=== PATIENT | male | born 1940 | race Caucasian/White ===

== ENCOUNTER 2018-05-06 08:08 | Observation (INO) | payer OTHER, MEDICARE ==
[2018-05-06] MEDS ORDERED: ASPIRIN EC 325 MG TAB PO ONE ×2 (08:13→09:15)
[2018-05-06] MEDS ORDERED: diphenhydrAMINE 25 MG CAP PO ONE ×2 (08:13→09:15)
[2018-05-06] MEDS ORDERED: FAMOTIDINE 20 MG TAB PO ONE (08:13)
[2018-05-06] MEDS ORDERED: NS 1,000 ML IV ONE (08:13)
--- NOTE | 2018-05-06 08:44 | CPEKG ---
Heart Rate: 58 RR Interval: 1034 P-R Interval: 160 QRSD Interval: 90 QT Interval: 396 QTC Interval: 389 P [place]: -32 QRS [place]: 69 T Wave [place]: 134 EKG Severity - ABNORMAL ECG - EKG Impression: SINUS RHYTHM EKG Impression: NONSPECIFIC T ABNORMALITIES, ANT-LAT LEADS Electronically Signed By: Maximo Doyle 07-May-2018 11:23:51
[2018-05-06] MEDS ORDERED: LIDOCAINE 1% 300 MG/30 ML SDV ONE (08:45)
[2018-05-06] MEDS ORDERED: fentaNYL 100 MCG/2 ML INJ ONE ×2 (08:45→10:34)
[2018-05-06] MEDS ORDERED: MIDAZOLAM 2 MG/2 ML VIAL ONE (08:45)
[2018-05-06] MEDS ORDERED: IOPAMIDOL (ISOVUE-370) 150 ML BTL IV ONE ×2 (08:46→10:31)
[2018-05-06 09:07] LABS: PLATELET COUNT 167 10^3/uL (150-400)
[2018-05-06] MEDS ORDERED: FAMOTIDINE 20 MG TAB ONE (09:15)
[2018-05-06 09:19] LABS: PROTIME(PATIENT) 13.4 SEC (12.0-15.0)
--- NOTE | 2018-05-06 09:22 | PDHPUP ---
History & Physical Update H&P update statement: This history and physical update is based on an assessment of the patient which was completed after admission or registration (within 24 hours), but prior to the surgery/procedure. H&P update: H&P reviewed & patient examined, no change in patient's condition since H&P completed
--- NOTE | 2018-05-06 09:23 | PDPROPOC ---
Sedation Plan of Care Sedation Plan of Care: vital signs stable, mental status noted, patient educated of risks, benefits, alternatives, patient can tolerate sedation ASA Classification: ASA 3 Planned drugs: fentanyl, midazolam Mallampati Score: Class 2 Mallampati Reference Image: Patient passed 3-3-2 rule?: Yes
--- NOTE | 2018-05-06 10:18 | PDDXCAT ---
Diagnostic Cath Note - . Date: 05/06/18 Advertising Account Manager: George Indication: CCC Class III and IV angina on medical treatment - Procedure Access: right groin Procedure: coronary angiography, vein graft injection, PAZ injection, other ( coronary catheterization) - Materials Left Heart Cath size: 6F Left Heart Cath materials: standard multipack (JL4, JR4, pigtail) - Findings-Left Heart Catheterization LM: The LM bifurcates into an LAD and circumflex system. LAD: The LAD is diffusely diseased. There is a 95% obstruction of the proximal [place] LAD that required stenting. LCX: The circumflex proper is 3mm in size and is 100% occluded after a small left atrial branch. The graft to the circumflex is widely patent. RCA: The [place] RCA has 50% eccentric stenois. The mid RCA is dominant with diffuse disease. There is no flow limiting obstrcution. rSVG: The rSVG to the RCA is occluded. The rSVG to the circumflex is widely patent. PAZ: The PAZ to the LAD distally is widely patent without evidence of flow limiting disease. The distal LAD is small. Complications: NONE. Estimated blood loss: <50ml Closure method: Angioseal Assessment: The patient has severe [place] vessel coronary disease with a 95% proximal LAD obstruction that required stenting. The grafts to the LAD and circ is patent and there is competitive flow in the smaller of the 2 diagonal branches. The SVG to the RCA is known to be occluded. There was disease in the retrograde portion of the diagonal branch that appeared to limit blood flow to the alpha branch of the diagonal which is larger and longer than the grafted beta branch. The patient has known anterolateral wall motion abnormality so I elected to stent the proximal LAD to improve the blood flow to the diagonal alpha branch. Plan: Dual antiplatelet therapy with Aspirin 325mg for the first month followed by Aspirin 81mg along with Plavix 75mg daily should be continued for at least 1 year following drug eluting stent implantation. No elective surgery for the first 3 months. Decisions to stop dual antiplatelet therapy before 1 year should involve our office [facility]. Intervention: A 6 [place] EBU guiding catheter was used for guide catheter support. A 0.014 Intuition Wire was advanced across the lesion in the proximal LAD under direct fluoroscopic and angiographic guidance. The lesion in the [place] proximal LAD was primarily stented with a Synergy 3.0 x 25mm drug eluting stent. There was 0 % residual stenosis post stent implantation. Patient Problems: Problems Problem Status Onset Azotemia Acute Nephrolithiasis Acute Ureterolithiasis Acute
[2018-05-06] MEDS ORDERED: BIVALIRUDIN 250 MG/5 ML VIAL IV ONE (10:23)
[2018-05-06] MEDS ORDERED: NITROGLYCERIN 1,500 MCG/15 ML VIAL MISC ONE (10:31)
[2018-05-06] MEDS ORDERED: CLOPIDOGREL BISULFATE 75 MG TAB ONE (10:45)
--- NOTE | 2018-05-06 11:19 | CPEKG ---
Heart Rate: 63 RR Interval: 952 P-R Interval: 172 QRSD Interval: 104 QT Interval: 418 QTC Interval: 428 P [place]: 55 QRS [place]: 81 T Wave [place]: 22 EKG Severity - BORDERLINE ECG - EKG Impression: SINUS RHYTHM EKG Impression: BORDERLINE RIGHT AXIS DEVIATION EKG Impression: BORDERLINE T ABNORMALITIES, ANTERIOR LEADS Electronically Signed By: Maximo Doyle 07-May-2018 11:23:47
[2018-05-06] MEDS ORDERED: OXYCODONE/APAP 5/325 TAB PO PRN (11:28)
[2018-05-06] MEDS ORDERED: ATROPINE SULFATE 1 MG/10 ML SYR IVP PRN (11:28)
[2018-05-06] MEDS ORDERED: HYDROCODONE/APAP 5/325 TAB PO PRN (11:28)
[2018-05-06] MEDS ORDERED: CLOPIDOGREL BISULFATE 75 MG TAB PO ONE (11:28)
[2018-05-06] MEDS ORDERED: ONDANSETRON 4 MG/2 ML VIAL IVP PRN (11:28)
[2018-05-06] MEDS ORDERED: NS 1,000 ML IV SCH (11:30)
[2018-05-06] MEDS ORDERED: METOCLOPRAMIDE 10 MG TAB PO PRN (11:36)
[2018-05-06] MEDS ORDERED: CARBOXYMETHYLCELLULOSE 1% 0.4 ML DROPERETTE EACHEYE PRN (11:36)
[2018-05-06] MEDS ORDERED: CHOLECALCIFEROL VIT D3 2,000 UNITS TAB/CAP PO PRN (11:36)
--- NOTE | 2018-05-06 15:04 | ASMTCMCOM ---
CM Note CM Note Notes: 05/06/2018 Case Management Note Pt admitted for CAD with stent in the proximal LAD. Pt had heart cath this morning. Reviewed chart to assess for discharge needs. Pt is and retired. There is a cardiac rehab eval ordered. Discharge needs are yet to be identified, anticipating independent discharge. Case Management d/c poc: to be determined Case Management to follow. Date Signed: 05/06/2018 03:04 PM Electronically Signed By:Pascale Wharton RN
[2018-05-06] MEDS ORDERED: ATORVASTATIN CALCIUM 20 MG TAB PO SCH (18:00)
[2018-05-06] MEDS ORDERED: METOPROLOL SUCCINATE XR 25 MG TAB PO SCH (18:00)
[2018-05-06] MEDS: GABAPENTIN 100 MG CAP PO PRN ×2 (18:30→22:26)
[2018-05-06] MEDS ORDERED: MELATONIN 3 MG TAB PO SCH (21:00)
[2018-05-06] MEDS ORDERED: FAMOTIDINE 20 MG TAB PO SCH (21:00)
[2018-05-06] MEDS: NIACIN ER 500 MG TAB.ER PO SCH (22:26)
[2018-05-06] MEDS: buPROPion SR 150 MG TAB PO SCH (22:27)
[2018-05-06] MEDS: PENTOXIFYLLINE 400 MG EXT REL TAB PO SCH (22:27)
--- NOTE | 2018-05-07 05:44 | CPEKG ---
Heart Rate: 52 RR Interval: 1154 P-R Interval: 172 QRSD Interval: 88 QT Interval: 424 QTC Interval: 395 P [place]: -29 QRS [place]: 64 T Wave [place]: 116 EKG Severity - ABNORMAL ECG - EKG Impression: SINUS RHYTHM EKG Impression: NONSPECIFIC T ABNORMALITIES, ANT-LAT LEADS Electronically Signed By: Maximo Doyle 07-May-2018 11:23:17
[2018-05-07 06:02] LABS: PLATELET COUNT 137 10^3/uL (150-400)
[2018-05-07 07:21] VITALS: BP 136/78
[2018-05-07] MEDS ORDERED: PIOGLITAZONE HCL 15 MG TAB PO SCH (09:00)
[2018-05-07] MEDS ORDERED: LEVOTHYROXINE 75 MCG TAB PO SCH (09:00)
[2018-05-07] MEDS ORDERED: ASPIRIN EC 325 MG TAB PO SCH (09:00)
[2018-05-07] MEDS ORDERED: CHLORTHALIDONE 25 MG TAB PO SCH (09:00)
[2018-05-07] MEDS ORDERED: CLOPIDOGREL BISULFATE 75 MG TAB PO SCH (09:00)
[2018-05-07] MEDS ORDERED: MEMANTINE HCL 5 MG TAB PO SCH (09:00)
[2018-05-07] MEDS ORDERED: OMEGA-3 FATTY ACIDS 1,000 MG CAP PO SCH (09:00)
--- NOTE | 2018-05-07 09:50 | PDIAF ---
- Diagnosis Diagnosis: CAD Code Status: Full Code - Medication Management Discharge Medications: Medications to Continue on Transfer Aspirin EC [Aspirin EC 325 mg (*)] 325 mg PO DAILY #0 tab 08/27/16 [Last Taken Unknown] Atorvastatin Calcium [Lipitor 20 mg (*)] 20 mg PO DAILY18 #0 tab 08/27/16 [Last Taken Unknown] Cholecalciferol Vit D3 [Vitamin D3 2000 units tab (OTC)] 2,000 units PO DAILY PRN #0 each 08/27/16 [Last Taken Unknown] Herbals/Supplements -Info Only 1 each PO DAILY18 #0 ea 08/27/16 [Last Taken Unknown] Levothyroxine [Synthroid 75 mcg (*)] 75 mcg PO DAILY #0 tab 08/27/16 [Last Taken Unknown] Melatonin [Melatonin 3 MG (*)] 6 mg PO HS #0 tab 08/27/16 [Last Taken Unknown] Metoprolol Succinate Xr [Toprol Xl 25 mg (*)] 25 mg PO DAILY18 #0 tab 08/27/16 [ Last Taken Unknown] Niacin ER [Niaspan 500 mg (*)] 1,000 mg PO BID #0 tab 08/27/16 [Last Taken Unknown] Pentoxifylline [TRENTAL 400mg (*)] 400 mg PO BID #0 tab 08/27/16 [Last Taken Unknown] buPROPion SR [Wellbutrin 150mg SR (*)] 150 mg PO BID #0 tab 08/27/16 [Last Taken Unknown] celeCOXIB [Celebrex (*)] 200 mg PO BID #0 cap 08/27/16 [Last Taken Unknown] traZODone [traZODone 150MG (*)] 150 mg PO HS #0 tab 08/27/16 [Last Taken Unknown ] Carboxymethylcellulose 1% [Refresh Celluvisc (*)] 1 drop EACHEYE Q2HRS PRN 05/05 [Last Taken Unknown] Chlorthalidone [Chlorthalidone 25 mg (*)] 25 mg PO DAILY 05/05/18 [Last Taken Unknown] Gabapentin [Neurontin 100 MG (*)] 100 mg PO QID PRN 05/05/18 [Last Taken Unknown ] Memantine HCl [Namenda 5 mg (*)] 10 mg PO DAILY 05/05/18 [Last Taken Unknown] Metoclopramide [Reglan 10 mg tab (*)] 10 mg PO BID PRN 05/05/18 [Last Taken Unknown] [place]-3 Fatty Acids [Fish Oil 1000 mg (*)] 2,000 mg PO DAILY 05/05/18 [Last Taken Unknown] Pioglitazone HCl [Actos] 30 mg PO DAILY 05/05/18 [Last Taken Unknown] Ranitidine HCl [Zantac] 150 mg PO BID 05/05/18 [Last Taken Unknown] Sildenafil Citrate [Revatio 20 MG (*)] 20 mg PO DAILY PRN 05/05/18 [Last Taken Unknown] Clopidogrel Bisulfate [Plavix (*)] 75 mg PO DAILY #30 tab 05/07/18 [Last Taken Unknown] Discharge Medications: Refer to the Discharge Home Medication list for PRN reason. - Orders Isolation Type: None Diet Recommendation: cardiac -low fat low salt Additional Instructions: Groin precaution: 1. No lifting more the 5-10 pounds for 1 week 2. May shower but no bath, hot tubs or swimming pool (no stand water submersion ) until all insertion site are healed 3. Keep band aid on insertion site if clothing causes pressure on the insertion site 4. Watch for sign of infection (fever, redness, swelling, drainage, night sweat or chills) Call Dr Dover's office immediately if you have any of these symptoms. 5. If you notice a large amount of bleeding at site, hold press over it and call 911 6. No strenuous exercise for 2 weeks 7. Please use incentive spirometer every hour while awake for the next 2-3 days. 8. Take a 325 mg aspirin once a day 9. Take 75 mg of Plavix once daily. 10. [facility] will call you Wednesday to set up an appointment to be seen next week - Follow Up Care Current Providers and Referrals: Refugio King MD [Primary Care Provider] - Nico Pollock MD [Medical Doctor] - (Follow up with Dr. Pollock on May 13 at 10:00 a.m..)
[2018-05-07] MEDS: GABAPENTIN 100 MG CAP PO PRN (09:59)
[2018-05-07] MEDS: NIACIN ER 500 MG TAB.ER PO SCH (10:00)
[2018-05-07] MEDS: buPROPion SR 150 MG TAB PO SCH (10:00)
[2018-05-07] MEDS: PENTOXIFYLLINE 400 MG EXT REL TAB PO SCH (10:01)
--- NOTE | 2018-05-07 10:25 | GDS ---
[f rep st] DISCHARGE SUMMARY ADMISSION DIAGNOSES: 1. Exertional angina. 2. Coronary artery disease with previous bypass graft. 3. Hyperlipidemia. 4. Hypertension. 5. Blindness. DISCHARGE DIAGNOSES: 1. Coronary artery disease. 2. Status post percutaneous coronary intervention of proximal LAD with JOSE implantation. 3.0 x 24 m m Synergy JOSE stent. 3. Hypertension, hyperlipidemia. 4. Blindness. PROCEDURES PERFORMED DURING HOSPITALIZATION: 1. Electrocardiogram. 2. Diagnostic heart catheterization with bypass graft. 3. Percutaneous coronary and intervention of [place] proximal LAD with JOSE implantation. 3.0 x 24 mm JOSE. BRIEF HISTORY: Please see H and P. The patient is a 77-year-old male with known history of CAD. He reports over the last few weeks he has been disease developing exertional angina, usually after clim sony 1 flight of stairs. He has also noted on his treadmill. Did see his primary tow truck operator, Dr. Pollock, who felt that with his significant history, is concerning for potential of flow limiting dise ase causing his pain. Scheduled to undergo cardiac catheterization. HOSPITAL COURSE: Patient was admitted to the CVC, prepped for procedure, taken to the cardiac cathet erization lab by Dr. Dayne Vazquez, there a diagnostic left heart catheterization with grafts was done , finding showing LAD has diffuse disease with a 90% obstruction in the proximal [place] LAD. Circumflex proper is 3 mm in size in the high percent occluded after a small left atrial branch. RCA has a 50% stenosis in the mid, but no flow limiting disease. SVG to the RCA was completely block, S VG to the circumflex artery was patent, PAZ to the distal LAD widely patent without evidence of flow limiting disease. Percutaneous coronary intervention was done at that time, to the [place] proximal LAD in which a 3.0 x 24 mm Synergy JOSE implantation was done. No apparent complications. Patient wa s started on dual anti-platelet therapy of aspirin and clopidogrel. Throughout the night, patient berry s been remained in sinus rhythm, he reports no episodes of chest pain or pressure. He has been up wa lking the unit without difficulties. CURRENT PHYSICAL EXAMINATION: GENERAL APPEARANCE: Medium built, well-groomed male. He is alert and oriented to person, place, time, and situation. Appears to be under no acute distress. V ITAL SIGNS: Current vital signs are blood pressure 136/78, heart rate of 58, sinus rhythm on the mon itor, no malignant arrhythmias or pauses noted throughout the evening. Respirations 14, saturating 9 6% on room air. Temperature of 36.7 degrees Celsius. HEENT: Head is normocephalic. Lips and tongu e are pink and moist with no signs of cyanosis. Conjunctivae pink. NECK: Trachea is midline, +2 ca rotid pulses bilateral. No auscultated bruits, no jugular vein distention. RESPIRATORY: Lungs are clear, no diminished breath sounds in left lower lobe. 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 ABDOMEN: Soft, nontender, bowel sounds x4 quadrants. No organomegaly . No palpable masses. SKIN: [place], warm, dry, no cyanosis, no clubbing, no peripheral edema. VASCU LAR: +2 carotids bilateral, +2 radials bilateral, +1 dorsal pedal and posterior tibial pulses bilate ral. GROIN SITE: Right groin site, catheter insertion site, with no redness, swelling, drainage, ec chymosis, or hematoma. CMS checks within normal limits to right lower extremity. LABORATORY STUDIES: Laboratory studies drawn today show WBC of 6.91, hemoglobin of 15.5, hematocrit of 45.8, platelet count of 137. Sodium 139, potassium 3.6, chloride 103, CO2 27, BUN 20, creatinine 1.2, glucose 79, calcium 9.4, phosphorus 3.2, magnesium 1.8, total bilirubin 0.9, AST 21, lactic acid 412, albumin 3.1. Fasting lipid panel drawn on day of admission showed triglycerides of 110, total cholesterol of 152, LDL of 65, HDL of 65. Morning electrocardiogram showing sinus rhythm with possib le LVH, nonspecific T-wave abnormalities noted in multiple leads. DISCHARGE DISPOSITION: Patient will be discharged home in stable condition, activity restrictions, n ot lifting more than 10 pounds for the next week. No strenuous activity for the next 2 weeks. DISCHARGE MEDICATIONS: Please see discharge medication reconciliation sheet, patient will resume all home medications including beta metoprolol tartrate. Patient will also be started on clopidogrel, a nd remain on aspirin at 325 mg p.o. daily. DISCHARGE INSTRUCTIONS: Post percutaneous coronary intervention discharge instructions. Went over w ith the patient including monitoring for signs of infection, bleeding precautions, activity restricti ons, bathing precautions. At the time, stressed to the patient importance of dual anti-platelet ther apy, especially after JOSE implantation. At the time of discharge, patient verbalizes understanding, all instructions, and has no questions or concerns. Total time spent on discharge greater than 30 minutes. /[id number]/MODL
--- NOTE | 2018-05-07 11:01 | ASDISCHSUM ---
Discharge Information Plan Status:Home with No Needs Medically Cleared to Leave:05/07/2018 Discharge Date:05/07/2018 CM D/C Disposition:Home, Routine, Self-Care ADT D/C Disposition:Home, Routine, Self-Care Projected Discharge Date:05/07/2018 Transportation at D/C:Friend Discharge Delay Reason: Follow-Up Date:05/07/2018 Discharge Slot: Final Diagnosis: Placement Information Patient Contact Information Contact Name:GASTON Relationship:Other [address] City:[place] Alternate Phone: State/Zip Code:[place] [address] Email: Financial Information Financial Class:Medicare Primary Plan Desc:MEDICARE OUTPATIENT Primary Plan Number:[id number] Secondary Plan Desc:[employer]/MDR SUPPLEMENT Secondary Plan Number:[id number] Assessment Information [facility] CM Progress Note CM Note CM Note Notes: 05/06/2018 Case Management Note Pt admitted for CAD with stent in the proximal LAD. Pt had heart cath this morning. Reviewed chart to assess for discharge needs. Pt is and retired. There is a cardiac rehab eval ordered. Discharge needs are yet to be identified, anticipating independent discharge. Case Management d/c poc: to be determined Case Management to follow. Date Signed: 05/06/2018 03:04 PM Electronically Signed By:Pascale Wharton RN Case Management Discharge Plan Note Case Management Discharge Discharge Order Complete? Answers: Yes Patient to Obtain Answers: Independently Medications Transportation Arranged Answers: Family/Friends Family Notified Answers: No Discharge Comments Notes: Pt is discharging home today with no CM needs. He is being transported by his ex . Date Signed: 05/07/2018 10:59 AM Electronically Signed By:POLLO Graham Intervention Information
--- NOTE | 2018-05-07 11:24 | CPEKG ---
Heart Rate: 90 RR Interval: 667 P-R Interval: 160 QRSD Interval: 96 QT Interval: 408 QTC Interval: 500 P [place]: 79 QRS [place]: 24 T Wave [place]: 147 EKG Severity - ABNORMAL ECG - EKG Impression: SINUS RHYTHM EKG Impression: PROBABLE LVH WITH SECONDARY REPOL ABNRM EKG Impression: ANTERIOR ST ELEVATION, PROBABLY DUE TO LVH EKG Impression: inferolateral ST depressions Electronically Signed By: Maximo Doyle 07-May-2018 11:23:42
== END 2018-05-07 11:45 | disposition home or self-care (01) ==
LOC: FCATH 08:08 → F2W 11:27
PROVIDERS: ADMIT Internal Medicine Cardiovascular Disease; ATTEND Internal Medicine Cardiovascular Disease
DX: I25.110 Atherosclerotic heart disease of native coronary artery with unstable angina pectoris (principal); Z95.5 Presence of coronary angioplasty implant and graft; I10 Essential (primary) hypertension; E78.5 Hyperlipidemia, unspecified
CPT/HCPCS: 93005; 93459; C1725; C1760; C1769; C1874; C1887; C9600; J0583; J1200; J1644; J2250; J3010; Q9967

== ENCOUNTER 2018-07-11 10:04 | Observation (INO) | payer OTHER, MEDICARE ==
[2018-07-11] MEDS ORDERED: LIDOCAINE 1% 2 ML INJ ONE (10:36)
[2018-07-11] MEDS ORDERED: LR 1,000 ML IV ONE (10:44)
[2018-07-11] MEDS ORDERED: ceFAZolin 2 GM/DEXTROSE 100 ML IV ONE (10:44)
[2018-07-11] MEDS ORDERED: LIDOCAINE 1% 2 ML INJ ID PRN (10:44)
[2018-07-11] MEDS ORDERED: BACITRACIN ZINC 14.2 GM OINTTUBE TP ONE (12:34)
[2018-07-11] MEDS ORDERED: BUPIVACAINE 0.5% 30 ML SDV ONE (12:34)
[2018-07-11] MEDS ORDERED: THROMBIN (BOVINE) 5,000 UNIT VIAL TP ONE (12:34)
[2018-07-11] MEDS ORDERED: BUPIVACAINE/EPI 0.5% 30 ML SDV ONE (12:39)
--- NOTE | 2018-07-11 12:49 | PDANEPAE ---
ANE History of Present Illness R cervical, submandibular LN biopsy ANE Past Medical History - Cardiovascular History Hx Hypertension: Yes Hx Arrhythmias: Yes Hx Chest Pain: Yes Hx Coronary Artery / Peripheral Vascular Disease: Yes Hx CHF / Valvular Disease: No Hx Palpitations: No Cardiovascular History Comment: CABG 4 VESSEL 2000,. HX 2 ME, 1993 & 2000. ABLATION FOR AFL, 2012 - Pulmonary History Hx COPD: No Hx Asthma/Reactive Airway Disease: No Hx Recent Upper Respiratory Infection: No Hx Oxygen in Use at Home: Yes O2 in Use at Home (L/minute): 2L @ night Hx Sleep Apnea: No Sleep Apnea Screening Result - Last Documented: Positive Pulmonary History Comment: paralyzed hemidiaphragm. LUCIA Triggers only - Neurologic History Hx Cerebrovascular Accident: No Hx Seizures: No Hx Dementia: No Neurologic History Comment: peripherial neuropathy BLE's - Endocrine History Hx Diabetes: Yes Endocrine History Comment: "Pre Diabetic". hypothyroid - Renal History Hx Renal Disorders: Yes Renal History Comment: PBH. kidney stones. hydronephrosis. 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 GERD - Other Health History Other Health History: Multiple lumbar surgeries, fusion from T6-S1. DJD. Pt is blind. Burned himself on back medial to scapula on the right with heating pad 3 weeks ago and is covering with ABX ointment and bandage - Chronic Pain History Chronic Pain: Yes (BLE's, low/upper back) - Surgical History Prior Surgeries: Heart cath w LAD stent (drug eluding) 04/2018. ablation (a- flutter). bypass x 5 vessel, 2000. chronic back pain (x11 procedures). implanted stimulator wire remaining (no actual stimulator). kidney stone removal x 3. perforated diverticulum repaired ANE Review of Systems Review of Systems: recent CP before stent - Exercise capacity METS (RN): 3 METS ANE Patient History - Allergies Allergies/Adverse Reactions: lorazepam [Lorazepam] Allergy (Verified 07/08/18 16:50) PSYCHOSIS pregabalin [From Lyrica] Allergy (Verified 07/08/18 16:50) CONFUSION - Home Medications Home medications: home medication list seen and reviewed Home Medications: Carboxymethylcellulose 1% [Refresh Celluvisc (*)] 05/05/18 [Last Taken 07/11/18 ] Chlorthalidone [Chlorthalidone 25 mg (*)] 05/05/18 [Last Taken 07/10/18] Gabapentin [Neurontin 100 MG (*)] 05/05/18 [Last Taken 07/10/18] Metoclopramide [Reglan 10 mg tab (*)] PRN 05/05/18 [Last Taken 07/08/18] [place]-3 Fatty Acids [Fish Oil 1000 mg (*)] 05/05/18 [Last Taken 07/11/18] Pioglitazone HCl [Actos] 05/05/18 [Last Taken 07/09/18] Ranitidine HCl [Zantac] 05/05/18 [Last Taken 07/08/18] Sildenafil Citrate [Revatio 20 MG (*)] 05/05/18 [Last Taken 07/10/18] Aspirin EC [Aspirin EC 325 mg (*)] 07/08/18 [Last Taken 07/11/18] Atorvastatin Calcium [Lipitor 20 mg (*)] 07/08/18 [Last Taken 07/10/18] Cholecalciferol Vit D3 [Vitamin D3 2000 units tab (OTC)] 07/08/18 [Last Taken 07/10/18] Clopidogrel Bisulfate [Plavix (*)] 07/08/18 [Last Taken 07/10/18] Herbals/Supplements -Info Only 07/08/18 [Last Taken Unknown] Levothyroxine [Synthroid 75 mcg (*)] 07/08/18 [Last Taken 07/10/18] Melatonin [Melatonin 3 MG (*)] 07/08/18 [Last Taken 07/10/18] Metoprolol Succinate Xr [Toprol Xl 25 mg (*)] 07/08/18 [Last Taken 07/10/18] Neurontin PRN 07/08/18 [Last Taken 07/10/18] Niacin ER [Niaspan 500 mg (*)] 07/08/18 [Last Taken 07/11/18] Pentoxifylline [TRENTAL 400mg (*)] 07/08/18 [Last Taken 07/10/18] buPROPion SR [Wellbutrin 150mg SR (*)] 07/08/18 [Last Taken 07/10/18] celeCOXIB [Celebrex (*)] 07/08/18 [Last Taken 07/10/18] traZODone [traZODone 150MG (*)] 07/08/18 [Last Taken 07/10/18] - NPO status NPO Status: no food or drink >8 hours NPO Since - Liquids (Date): 07/10/18 NPO Since - Liquids (Time): 22:00 NPO Since - Solids (Date): 07/10/18 NPO Since - Solids (Time): 20:00 - Anes Hx Hx Anesthesia Complications (with details): blindness - Smoking Hx Smoking Status: Former smoker - Family Anes Hx Family Anes Hx: none Family Hx Anesthesia Complications: none ANE Labs/Vital Signs - Labs Result Diagrams: 07/11/18 12:20 - Vital Signs Vital Signs: reviewed preoperatively; see RN documention for details Blood Pressure: 113/74 Heart Rate: 59 Respiratory Rate: 22 O2 Sat (%): 94 Height: 167.64 cm Weight: 77.111 kg ANE Physical Exam - Airway Neck exam: FROM Mallampati Score: Class 2 Mouth exam: normal dental/mouth exam - Pulmonary Pulmonary: no respiratory distress - Cardiovascular Cardiovascular: regular rate and rhythym - ASA Status ASA Status: III ANE Anesthesia Plan Anesthesia Plan: GA w LMA Urgent/Emergent Case: Janice braxton completed preop but documented later for safe timely pt care
[2018-07-11] MEDS ORDERED: DEXAMETHASONE 4 MG/ML VIAL ONE (12:54)
[2018-07-11] MEDS ORDERED: LIDOCAINE 2% 100 MG/5 ML SYR ONE (12:54)
[2018-07-11] MEDS ORDERED: ONDANSETRON 4 MG/2 ML VIAL ONE (12:54)
[2018-07-11] MEDS ORDERED: fentaNYL 100 MCG/2 ML INJ ONE (12:55)
[2018-07-11] MEDS ORDERED: PROPOFOL 200 MG/20 ML VIAL ONE (12:55)
[2018-07-11] MEDS ORDERED: MIDAZOLAM 2 MG/2 ML VIAL ONE (12:58)
[2018-07-11] MEDS ORDERED: LABETALOL HCL 5 MG/ML 20 ML MDV IVP PRN (13:36)
[2018-07-11] MEDS ORDERED: ACETAMINOPHEN 500 MG TAB PO PRN (13:36)
[2018-07-11] MEDS ORDERED: NALOXONE HCL 0.4 MG/ML INJ IVP PRN (13:36)
[2018-07-11] MEDS ORDERED: ONDANSETRON 4 MG/2 ML VIAL IVP PRN ×2 (13:36→13:56)
[2018-07-11] MEDS ORDERED: DEXAMETHASONE 4 MG/ML VIAL IVP PRN (13:36)
[2018-07-11] MEDS ORDERED: HYDROmorphONE/DILAUDID 1 MG/ML INJ IVP PRN ×2 (13:36→13:56)
[2018-07-11] MEDS ORDERED: ALBUTEROL 3 ML DEYVIAL IH PRN (13:36)
[2018-07-11] MEDS ORDERED: oxyCODONE IR 5 MG TAB PO PRN (13:36)
[2018-07-11] MEDS ORDERED: HYDROCODONE/APAP 5/325 TAB PO PRN (13:36)
[2018-07-11] MEDS ORDERED: MEPERIDINE 25 MG/0.5 ML AMP IVP PRN (13:36)
[2018-07-11] MEDS ORDERED: fentaNYL 100 MCG/2 ML INJ IVP PRN (13:36)
--- NOTE | 2018-07-11 13:38 | POSTANESTH ---
Post Anesthetic Evaluation Cardiovascular Status: Similar to Pre-Op Cond Respiratory Status: Similar to Pre-op Cond. Level of Consciousness/Mental Status: Can Participate in Eval, Mildly Sleepy, Arousable Pain Control: Adequate, Prn Tx Ordered Nausea/Vomiting Control: Adequate, Prn Tx Ordered Complications Possibly Related to Anesthesia: None Noted
[2018-07-11] MEDS ORDERED: OXYCODONE/APAP 5/325 TAB PO PRN (13:56)
[2018-07-11] MEDS ORDERED: NS 1,000 ML IV SCH (14:00)
--- NOTE | 2018-07-11 14:01 | POSTOPPROG ---
Post Op Note Date of Operation: 07/11/18 Surgeon: Nico De La Cruz Account Liaison Hospice: Malika Sandoval Anesthesiologist: Oleg Flannery Anesthesia: GET(General Endotracheal) Pre-op Diagnosis: lymphadenopathy Post-op Diagnosis: same Indication: 77 Y M c LAD and FNA bx suggesting possible lymphoma. Procedure: R submandibular cervical lymph node biopsy Findings: enalarged LN, hemostasis achieved, path pending Inf/Abcess present in the surg proc area at time of surgery?: No EBL: Minimal Complications: none Specimen(s): LN to pathology
[2018-07-11] MEDS ORDERED: HYDROmorphONE/DILAUDID 2 MG/ML INJ ONE (14:30)
[2018-07-11] MEDS ORDERED: HYDROmorphONE/DILAUDID 2 MG/ML INJ IVP PRN (14:36)
[2018-07-11] MEDS: HYDROmorphONE/DILAUDID 2 MG/ML INJ IVP PRN ×2 (14:43→15:01)
[2018-07-11] MEDS ORDERED: HYDROmorphone HCL 0.5 MG/0.5 ML SYR IVP PRN (16:30)
[2018-07-11] MEDS: ACETAMINOPHEN 325 MG TAB PO PRN (20:59)
[2018-07-11] MEDS: DOCUSATE SODIUM 100 MG CAP PO SCH (20:59)
[2018-07-11] MEDS ORDERED: METOCLOPRAMIDE 10 MG TAB PO PRN (23:40)
[2018-07-11] MEDS ORDERED: GABAPENTIN 100 MG CAP PO PRN (23:40)
[2018-07-11] MEDS ORDERED: METOPROLOL SUCCINATE XR 25 MG TAB PO SCH (23:45)
[2018-07-11] MEDS ORDERED: MELATONIN 3 MG TAB PO SCH (23:45)
[2018-07-12] MEDS: FAMOTIDINE 20 MG TAB PO SCH ×2 (00:06→09:09)
[2018-07-12] MEDS: buPROPion SR 150 MG TAB PO SCH ×2 (00:06→09:09)
[2018-07-12] MEDS: ACETAMINOPHEN 325 MG TAB PO PRN (02:41)
[2018-07-12] MEDS: PENTOXIFYLLINE 400 MG EXT REL TAB PO SCH ×2 (04:13→09:07)
[2018-07-12] MEDS ORDERED: LEVOTHYROXINE 75 MCG TAB PO SCH (06:00)
[2018-07-12 07:38] VITALS: BP 118/76
--- NOTE | 2018-07-12 09:02 | ASMTCMCOM ---
CM Note CM Note Notes: Chart reviewed. Patient underwent excisional biopsy of cervical lymph node.He was seen by surgery this am and medically cleared for discharge. No current needs identified. CM available should needs arise. Plan: DC to home with family support. Date Signed: 07/12/2018 09:01 AM Electronically Signed By:Cheri Freedman RN
[2018-07-12] MEDS: DOCUSATE SODIUM 100 MG CAP PO SCH (09:10)
--- NOTE | 2018-07-12 09:39 | SOAPPROG ---
SOAP Progress Note Assessment/Plan: Assessment/Plan: 77 y M s/p cervical LN bx, POD#1. Doing well. D/c to home. S: minimal pain. O: alert, nad inc cdi, mild swelling, no ecchymosis ctab rrr abd soft, nt ext wwp 07/12/18 09:38 Objective: Vital Signs Temp Pulse Resp BP Pulse Ox 36.8 C 59 L 16 118/76 93 07/12/18 07:34 07/12/18 07:34 07/12/18 07:34 07/12/18 07:34 07/12/18 07:34 Laboratory Results 07/11/18 12:20 07/11/18 07/12/18 07/13/18 05:59 05:59 05:59 Intake Total 1170 Output Total 855 125 Balance 315 -125 ICD10 Worksheet Patient Problems: Problems Problem Status Onset Azotemia Acute Nephrolithiasis Acute Ureterolithiasis Acute
[2018-07-13] MEDS ORDERED: ENOXAPARIN 40 MG/0.4 ML SYR SC SCH (09:00)
--- NOTE | 2018-07-17 17:22 | GOP ---
DATE OF OPERATION: 07/11/2018 SURGEON: Nico De La Cruz MD ASSOCIATE VETERINARIAN: RENATA Platt. ANESTHESIOLOGIST: Dr. Flannery. PREOPERATIVE DIAGNOSIS: Deep cervical adenopathy. POSTOPERATIVE DIAGNOSIS: Possible lymphoma. PROCEDURE PERFORMED: Right submandibular cervical lymph node biopsy. FINDINGS: The patient was found to have a 3 cm, enlarged, plump lymph node, which was suspicious for lymphoma, and no other major adenopathy in the area. The submandibular gland appeared to be normal and intact. ESTIMATED BLOOD LOSS: Negligible. DESCRIPTION OF PROCEDURE: The patient was taken to the operating room, where he received a satisfact ory general endotracheal anesthesia by Dr. Flannery. He was placed in the supine position with his n cleopatra extended. He was prepped and draped in usual sterile fashion. A transverse incision was made ov er the palpable mass just posterior to the submandibular of. Dissection was carried carefully down t hrough the platysma. The marginal branch of the mandibular nerve was spared from injury. The palpab le node was identified. It was carefully dissected free from surrounding tissue, avoiding the lingua l nerve as well. The node was completely freed up and removed. Hemostasis was carefully obtained wi th hemoclips and electrocautery where safe. Hemostasis was adequately obtained. Some topical thromb in was placed in the wound. He had no excessive bleeding despite being on Plavix. The deep fascia w as closed with 3-0 Vicryl. The platysma and subcutaneous tissue were closed with 3-0 Vicryl and the skin with a 4-0 Monocryl subcuticular stitch. The skin was infiltrated with 0.5% Marcaine. There we re no complications. He tolerated the procedure well. /[id number]
== END 2018-07-12 12:56 | disposition home or self-care (01) ==
LOC: F3E 10:04 → F1N 15:34
PROVIDERS: ADMIT Surgery; ATTEND Surgery
PROC: 07B10ZX Excision of Right Neck Lymphatic, Open Approach, Diagnostic (ICD-10-PCS; principal; 2018-07-11 11:30)
DX: C82.01 Follicular lymphoma grade I, lymph nodes of head, face, and neck (principal); I25.10 Atherosclerotic heart disease of native coronary artery without angina pectoris; E11.9 Type 2 diabetes mellitus without complications; Z95.1 Presence of aortocoronary bypass graft; I25.2 Old myocardial infarction
CPT/HCPCS: 38510; 88184; 88185; J1100; J1170; J2001; J2250; J2405; J2704; J3010